=== PATIENT | female | born 1975 | race Caucasian/White ===

== ENCOUNTER 2016-07-11 10:59 | Emergency (ER) | payer MEDICARE, MEDICAID ==
[2016-07-11 11:39] VITALS: BP 143/85
--- NOTE | 2016-07-11 13:04 | RAD ---
Indication: Fifth toe injury. 3 views of the fifth toe demonstrates deformity of the fifth metatarsal. No fracture is noted. IMPRESSION: Deformity of the fifth metatarsal without evidence of fracture.
--- NOTE | 2016-07-11 13:26 | UC ---
Lower Extremity/Ankle HPI - HPI Summary HPI Summary: YESTERDAY STUBBED LEFT PINKY TOE ON DOOR HINGE. PAIN IN TOE CONTINUES AND RADIATES TO (LATERAL) FOOT. NO ANKLE PAIN. NO HISTORY OF PREVIOUS FOOT INJURY - History of Current Complaint Chief Complaint: UCLowerExtremity Stated Complaint: LEFT PINKY TOE INJURY Time Seen by Provider: 07/11/16 12:20 Hx Obtained From: Patient, Family/Community Living Instructor Hx Last Menstrual Period: 04/16/15 Onset/Duration: Sudden Onset, Lasting Hours, Still Present Severity Initially: Moderate Severity Currently: Mild Aggravating Factor(s): Standing, Ambulation Alleviating Factor(s): Rest Able to Bear Weight: Yes - Risk Factors Gout Risk Factors: Diabetes, Obesity DVT Risk Factors: Smoking - Allergies/Home Medications Allergies/Adverse Reactions: Allergies Allergy/AdvReac Type Severity Reaction Status Date / Time No Known Allergies Allergy Verified 07/11/16 11:31 PMH/Surg Hx/FS Hx/Imm Hx Previously Healthy: Yes Endocrine History Of: Reports: Diabetes, Thyroid Disease - Hypothyroidism. History of thyroid cancer., Hypothyroidism Denies: Hyperthyroidism, Dyslipidemia Cardiovascular History Of: Reports: Hypertension Denies: Cardiac Disorders, Pacemaker/ICD, Myocardial Infarction, Congestive Heart Failure, Atrial Fibrillation, Deep Vein Thrombosis, Bleeding Disorders Respiratory History Of: Denies: COPD, Asthma, Bronchitis, Pneumonia, Pulmonary Embolism GI/ History Of: Reports: Gastroesophageal Reflux Denies: Ulcer, Gastrointestinal Bleed, Gall Bladder Disease, Kidney Stones, Diverticulitis, Renal Disease, Urosepsis Neurological History Of: Denies: TIA, CVA, Dementia, Seizures, Migraine Psychological History Of: Reports: Depression Denies: Anxiety, Bipolar Disorder, Schizophrenia, Post Traumatic Stress Disorder Cancer History Of: Denies: Lung Cancer, Colorectal Cancer, Breast Cancer, Prostate Cancer, Cervical Cancer Other History Of: Negative For: HIV, Hepatitis B, Hepatitis C - Surgical History Surgical History: Yes Surgery Procedure, Year, and Place: [place] thyroid removed. 2001 - Family History Known Family History: Positive: None, Diabetes - Social History Occupation: Employed Full-time Lives: With Family Alcohol Use: None Substance Use Type: None Smoking Status (MU): Heavy Every Day Tobacco Smoker Type: Cigarettes Amount Used/How Often: 1 PPD Length of Time of Smoking/Using Tobacco: 30 Years Have You Smoked in the Last Year: Yes Cessation Counseling: Patient Advised to Stop - Immunization History Most Recent Influenza Vaccination: 2016 Review of Systems Constitutional: Negative Skin: Negative Eyes: Negative ENT: Negative Respiratory: Negative Cardiovascular: Negative Gastrointestinal: Negative Genitourinary: Negative Motor: Negative Neurovascular: Negative Musculoskeletal: Arthralgia - LEFT FIFTH TOE, Myalgia Neurological: Negative Psychological: Negative All Other Systems Reviewed And Are Negative: Yes Physical Exam Triage Information Reviewed: Yes Appearance: Well-Appearing, No Pain Distress, Well-Nourished, Obese Vital Signs: Initial Vital Signs Temp 97.9 F 07/11/16 11:34 Pulse 82 07/11/16 11:34 Resp 22 07/11/16 11:34 BP 143/85 07/11/16 11:34 Pulse Ox 99 07/11/16 11:34 Vital Signs Reviewed: Yes Eye Exam: Normal Eyes: Positive: Conjunctiva Clear ENT Exam: Normal Dental Exam: Normal Neck exam: Normal Respiratory Exam: Normal Respiratory: Positive: Chest non-tender, Lungs clear, Normal breath sounds, No respiratory distress, No accessory muscle use Cardiovascular Exam: Normal Cardiovascular: Positive: RRR, No Murmur, Pulses Normal, Brisk Capillary Refill Abdominal Exam: Normal Abdomen Description: Positive: Nontender, No Organomegaly Musculoskeletal: Positive: Strength Intact, ROM Intact, No Edema, Other: - CONTUSION LEFT FIFTH TOE AND CORRESPONDING METATARSAL Neurological Exam: Normal Psychological Exam: Normal Skin Exam: Normal Diagnostics - Laboratory Diagnostic Studies Completed/Ordered: LEFT 5TH TOE XRAY: INCIDENTAL DEFORMITY OF LEFT FIFTH METATARSAL WITHOUT EVIDENCE OF FRACTURE Lower Extremity Course/Dx - Differential Dx/Diagnosis Differential Diagnosis/HQI/PQRI: Fracture (Closed), Sprain, Strain Provider Diagnoses: LEFT FIFTH TOE CONTUSION/SPRAIN. INCIDENTAL DEFORMITY OF LEFT FIFTH METATARSAL WITHOUT EVIDENCE OF FRACTURE Discharge - Discharge Plan Condition: Stable Disposition: HOME Patient Education Materials: Foot Contusion (ED), Foot Sprain (ED) Referrals: Erna Garcia MD [Primary Care Provider] -
== END 2016-07-11 13:28 | disposition home or self-care (01) ==
LOC: UCCORT 10:59
DX: S90.122A Contusion of left lesser toe(s) without damage to nail, initial encounter (principal); S93.505A Unspecified sprain of left lesser toe(s), initial encounter; W22.8XXA Striking against or struck by other objects, initial encounter; Y93.9 Activity, unspecified; Y92.9 Unspecified place or not applicable; M20.62 Acquired deformities of toe(s), unspecified, left foot; F17.210 Nicotine dependence, cigarettes, uncomplicated
CPT/HCPCS: 99212; G0463

== ENCOUNTER 2016-07-27 16:21 | Emergency (ER) | payer MEDICARE, MEDICAID ==
[2016-07-27 17:05] VITALS: BP 147/90
--- NOTE | 2016-07-27 17:36 | UC ---
Respiratory Complaint HPI - HPI Summary HPI Summary: 2 weeks of cold symptoms. Still coughing and congested. No fever. No ST. No vomiting. HEr MD put her on two sequential antibiotics (perhaps Levaquin and Bactrim?) but they haven't helped. - History of Current Complaint Chief Complaint: UCGeneralIllness Stated Complaint: COUGH,RUNNY NOSE Time Seen by Provider: 07/27/16 17:18 Hx Obtained From: Patient Hx Last Menstrual Period: has esure Onset/Duration: Gradual Onset, Lasting Weeks - 2 Timing: Constant Severity Initially: Mild Severity Currently: Mild Character: Cough: Nonproductive Aggravating Factors: Exertion, Deep Breaths, Recumbent Position Alleviating Factors: Bronchodilator Associated Signs And Symptoms: Positive: Chills, URI, Nasal Congestion, Hoarseness - Risk Factors Pulmonary Embolism Risk Factors: Negative Cardiac Risk Factors: Negative Pseudomonas Risk Factors: Negative Tuberculosis Risk Factors: Negative - Allergies/Home Medications Allergies/Adverse Reactions: Allergies Allergy/AdvReac Type Severity Reaction Status Date / Time No Known Allergies Allergy Verified 07/27/16 17:05 Home Medications: Home Medications Albuterol HFA INHALER* [Ventolin HFA Inhaler*] 2 puff INH Q4H PRN 07/27/16 [ History Confirmed 07/27/16] Budesonide/Formote 160/4.5(NF) [Symbicort 160/4.5 (NF)] 2 puff INH BID 07/27/16 [History Confirmed 07/27/16] Canagliflozin-Metformin HCl [Invokamet 150-1000 mg] 1 tab PO BID 07/27/16 [ History Confirmed 07/27/16] Dulaglutide (NF) [Trulicity (NF)] 1.5 mg SUBCUT WEEKLY 07/27/16 [History Confirmed 07/27/16] Levofloxacin TAB* [Levaquin 750 MG TAB*] 1 tab DAILY 07/27/16 [History Confirmed 07/27/16] Lisinopril [Lisinopril 40 MG-] 40 mg PO DAILY 07/27/16 [History Confirmed ] Potassium Chloride Microencaps [Klor-Con M20] 20 meq PO DAILY 07/27/16 [History Confirmed 07/27/16] Simvastatin TAB(NF) [Zocor(NF)] 20 mg PO 1700 07/27/16 [History Confirmed ] Sulfamethox/Trimethoprim DS* [Bactrim DS 800/160 TAB*] 1 tab PO BID 07/27/16 [ History Confirmed 07/27/16] Triamcinolone NASAL SPRAY* [Nasacort AQ Nasal [place]*] 1 puff NASAL DAILY [History Confirmed 07/27/16] PMH/Surg Hx/FS Hx/Imm Hx Endocrine History Of: Reports: Diabetes, Thyroid Disease - Hypothyroidism. History of thyroid cancer., Hypothyroidism Denies: Hyperthyroidism, Dyslipidemia Cardiovascular History Of: Reports: Hypertension Denies: Cardiac Disorders, Pacemaker/ICD, Myocardial Infarction, Congestive Heart Failure, Atrial Fibrillation, Deep Vein Thrombosis, Bleeding Disorders Respiratory History Of: Denies: COPD, Asthma, Bronchitis, Pneumonia, Pulmonary Embolism GI/ History Of: Reports: Gastroesophageal Reflux Denies: Ulcer, Gastrointestinal Bleed, Gall Bladder Disease, Kidney Stones, Diverticulitis, Renal Disease, Urosepsis Neurological History Of: Denies: TIA, CVA, Dementia, Seizures, Migraine Psychological History Of: Reports: Depression Denies: Anxiety, Bipolar Disorder, Schizophrenia, Post Traumatic Stress Disorder Cancer History Of: Denies: Lung Cancer, Colorectal Cancer, Breast Cancer, Prostate Cancer, Cervical Cancer Other History Of: Negative For: HIV, Hepatitis B, Hepatitis C - Surgical History Surgical History: Yes Surgery Procedure, Year, and Place: [place] thyroid removed. 2001 - Family History Known Family History: Positive: None, Diabetes - Social History Occupation: Employed Full-time Alcohol Use: None Substance Use Type: None Smoking Status (MU): Heavy Every Day Tobacco Smoker Type: Cigarettes Amount Used/How Often: 1 PPD Length of Time of Smoking/Using Tobacco: 30 Years Have You Smoked in the Last Year: Yes - Immunization History Most Recent Influenza Vaccination: 2015 Review of Systems Constitutional: Negative Skin: Negative Eyes: Negative ENT: Nasal Discharge Respiratory: Cough Cardiovascular: Negative Gastrointestinal: Negative Genitourinary: Negative Motor: Negative Neurovascular: Negative Musculoskeletal: Negative Neurological: Negative Psychological: Negative All Other Systems Reviewed And Are Negative: Yes Physical Exam Triage Information Reviewed: Yes Appearance: Well-Appearing, No Pain Distress, Well-Nourished Vital Signs: Initial Vital Signs Temp 98.3 F 07/27/16 16:58 Pulse 88 07/27/16 16:58 Resp 18 07/27/16 16:58 BP 147/90 07/27/16 16:58 Pulse Ox 100 07/27/16 16:58 Vital Signs Reviewed: Yes Eye Exam: Normal ENT: Positive: Pharynx normal, Nasal congestion, Nasal drainage, TM dull - right side with clear fluid level. Negative: Tonsillar swelling, Trismus, Muffled/hoarse voice Neck exam: Normal Neck: Positive: Supple Respiratory Exam: Normal Respiratory: Positive: Lungs clear, Normal breath sounds, No respiratory distress, No accessory muscle use Cardiovascular Exam: Normal Musculoskeletal Exam: Normal Neurological Exam: Normal Psychological Exam: Normal Skin Exam: Normal Diagnostic Evaluation - Laboratory O2 Sat by Pulse Oximetry: 100 Respiratory Course/Dx - Differential Dx/Diagnosis Differential Diagnosis/HQI/PQRI: Bronchitis, Lower Resp Infection, Sinusitis Provider Diagnoses: URI Discharge - Discharge Plan Condition: Stable Disposition: HOME Prescriptions: Benzonatate CAP* [Tessalon CAP*] 100 mg PO TID PRN #30 cap PRN Reason: Cough Guaifenesin-Codeine [Cheratussin AC] 2 teasp PO BEDTIME PRN #100 ml MDD 10ml PRN Reason: Cough Pseudoephedrine HCl [Sudafed 12 Hour] 120 mg PO BID PRN #20 tab PRN Reason: Congestion Patient Education Materials: Upper Respiratory Infection (ED) Forms: *Work Release Referrals: Erna Garcia MD [Primary Care Provider] -
== END 2016-07-27 17:35 | disposition home or self-care (01) ==
LOC: UCCORT 16:21
DX: J06.9 Acute upper respiratory infection, unspecified (principal); I10 Essential (primary) hypertension; F17.210 Nicotine dependence, cigarettes, uncomplicated
CPT/HCPCS: 99212; G0463

== ENCOUNTER 2017-01-30 14:07 | Emergency (ER) | payer MEDICARE, MEDICAID ==
[2017-01-30 14:22] VITALS: BP 111/74
--- NOTE | 2017-01-30 14:43 | UC ---
UC General HPI - History of Current Complaint Chief Complaint: UCGeneralIllness Stated Complaint: HIGH SUGAR LEVEL Time Seen by Provider: 01/30/17 14:24 Hx Obtained From: Patient Hx Last Menstrual Period: has esure Onset/Duration: Sudden Onset - increasing sugars without any reason., Lasting Days - 2 days, Still Present - sugars have been up and down. Timing: Intermittent Episodes Lasting: - at least 4 hours at a time. Onset Severity: Moderate Current Severity: Moderate Associated Signs & Symptoms: Positive: Dizziness - just with bending over or getting up fast., Diaphoresis - ongoing with no real change., Melena - had a heart test. Has resolved. Took peptobismal.. Negative: Abdominal Pain, Back Pain, Cough, Diarrhea, Fever, Headache, Palpitations, Recent Medication Changes , Syncope, SOB, Vomiting, Wheezing, Weakness - Allergy/Home Medications Allergies/Adverse Reactions: Allergies Allergy/AdvReac Type Severity Reaction Status Date / Time No Known Allergies Allergy Verified 07/27/16 17:05 PMH/Surg Hx/FS Hx/Imm Hx Endocrine History: Diabetes, Hypothyroidism, Dyslipidemia Other History Of: Negative For: HIV, Hepatitis B, Hepatitis C - Surgical History Surgical History: Yes Surgery Procedure, Year, and Place: [place] thyroid removed. 2001 - Family History Known Family History: Positive: Cardiac Disease, Hypertension, Diabetes - Social History Occupation: Employed Full-time Lives: With Family - boyfriend Alcohol Use: None Substance Use Type: None Smoking Status (MU): Heavy Every Day Tobacco Smoker Type: Cigarettes Amount Used/How Often: 1 PPD Length of Time of Smoking/Using Tobacco: 30 Years Have You Smoked in the Last Year: Yes Cessation Counseling: Patient Advised to Stop - Immunization History Most Recent Influenza Vaccination: 2016 Review of Systems Constitutional: Fatigue All Other Systems Reviewed And Are Negative: Yes Physical Exam Triage Information Reviewed: Yes Appearance: Well-Appearing, No Pain Distress, Obese Vital Signs: Initial Vital Signs Temp 97.3 F 01/30/17 14:12 Pulse 100 01/30/17 14:12 Resp 16 01/30/17 14:12 BP 111/74 01/30/17 14:12 Pulse Ox 100 01/30/17 14:12 Vital Signs Reviewed: Yes Eyes: Positive: Conjunctiva Clear ENT: Positive: Pharynx normal, TMs normal Neck exam: Normal Respiratory: Positive: Lungs clear Cardiovascular Exam: Normal Abdomen Description: Positive: Nontender, No Organomegaly, Other: - small ventral hernia Musculoskeletal Exam: Normal Neurological Exam: Normal Psychological Exam: Normal Skin Exam: Normal Course/Dx - Differential Dx - Multi-Symptom Differential Diagnoses: Metabolic Abnormality, Sepsis Provider Diagnoses: Diabetes,. Hyperglycemia - Physician Notifications Discussed Patient Care With: Donell Rosales - accepted for transfer to [facility] Time Discussed With Above Provider: 14:55 Instructed by Provider To: Transfer - [facility] Discharge - Discharge Plan Condition: Stable Disposition: HOME Patient Education Materials: Diabetic Hyperglycemia (ED) Additional Instructions: Smoking Cessation Tricks. 1. Cut down by 1 cigarette per day every 2-3 days. Write the number of smokes for that day on the calendar. 2. Identify triggers to smoking: after meals, on the phone, in the car, with coffee, on breaks at work, etc. 3. Formulate a plan with a behavior to replace the smoking. Fireballs in the car , doodle pad on the phone, flavored creamer for the coffee, go for a walk after a meal or on break at work. 4. For stress smokes do deep breathing relaxation. Breath deep in through the nose hold the breath in for a few seconds then breath out slowly through the mouth. Consider Victoza or other GLP1 medications for your diabetes.
== END 2017-01-30 15:21 | disposition home or self-care (01) ==
LOC: UCCORT 14:07
DX: E11.65 Type 2 diabetes mellitus with hyperglycemia (principal); R42 Dizziness and giddiness; R61 Generalized hyperhidrosis; K92.1 Melena; E03.9 Hypothyroidism, unspecified; E78.5 Hyperlipidemia, unspecified; E66.9 Obesity, unspecified; F17.210 Nicotine dependence, cigarettes, uncomplicated
CPT/HCPCS: 99211; G0463

== ENCOUNTER 2017-03-31 09:03 | Emergency (ER) | payer MEDICARE, MEDICAID ==
[2017-03-31 09:10] VITALS: BP 133/79
--- NOTE | 2017-03-31 09:29 | UC ---
Respiratory Complaint HPI - HPI Summary HPI Summary: 42 year old female with history of smoking presents with cough and congestion for 4 days. Uncontrolled DM-2 and smokes 1 ppd . Has had some wheezing. Denies SOB/CP/BARRETT - History of Current Complaint Chief Complaint: UCRespiratory Stated Complaint: COUGH Time Seen by Provider: 03/31/17 09:16 Hx Obtained From: Patient Hx Last Menstrual Period: no Onset/Duration: Gradual Onset Timing: Constant Severity Initially: Moderate Severity Currently: Moderate Character: Cough: Productive - Allergies/Home Medications Allergies/Adverse Reactions: Allergies Allergy/AdvReac Type Severity Reaction Status Date / Time No Known Allergies Allergy Verified 03/31/17 09:10 PMH/Surg Hx/FS Hx/Imm Hx Previously Healthy: Yes Endocrine History: Diabetes Cardiovascular History: Hypertension Other History Of: Negative For: HIV, Hepatitis B, Hepatitis C - Surgical History Surgical History: Yes Surgery Procedure, Year, and Place: [place]. thyroid removed. 2001 - Family History Known Family History: Positive: None, Cardiac Disease, Hypertension, Diabetes - Social History Occupation: Employed Full-time Lives: With Family Alcohol Use: None Substance Use Type: None Smoking Status (MU): Heavy Every Day Tobacco Smoker Type: Cigarettes Amount Used/How Often: 1 PPD Length of Time of Smoking/Using Tobacco: 30 Years Have You Smoked in the Last Year: Yes Cessation Counseling: Patient Advised to Stop - Immunization History Most Recent Influenza Vaccination: no Review of Systems ENT: Nasal Discharge Respiratory: Cough All Other Systems Reviewed And Are Negative: Yes Physical Exam Triage Information Reviewed: Yes Appearance: Well-Appearing, No Pain Distress, Well-Nourished Vital Signs: Initial Vital Signs Temp 98.8 F 03/31/17 09:06 Pulse 85 03/31/17 09:06 Resp 18 03/31/17 09:06 BP 133/79 03/31/17 09:06 Pulse Ox 97 03/31/17 09:06 Vital Signs Reviewed: Yes Eye Exam: Normal ENT Exam: Normal Dental Exam: Normal Neck exam: Normal Neck: Positive: 1 Respiratory Exam: Normal Cardiovascular Exam: Normal Musculoskeletal Exam: Normal Neurological Exam: Normal Psychological Exam: Normal Skin Exam: Normal UC Diagnostic Evaluation - Laboratory O2 Sat by Pulse Oximetry: 97 Respiratory Course/Dx - Course Course Of Treatment: Advised to quit smoking. Advised better control of her DM2 and go to PCP in 1 day for follow up . She is agreeable. She requested work note. - Differential Dx/Diagnosis Differential Diagnosis/HQI/PQRI: Bronchitis, Exacerbation Of COPD, Lower Resp Infection Provider Diagnoses: Bronchitis with tobacco use Discharge - Discharge Plan Condition: Good Disposition: HOME Prescriptions: Doxycycline Hyclate [Doxycycline Hyclate Dr] 100 mg PO BID #20 tab Patient Education Materials: Acute Bronchitis (ED)
== END 2017-03-31 10:07 | disposition home or self-care (01) ==
LOC: UCCORT 09:03
DX: J40 Bronchitis, not specified as acute or chronic (principal); E11.9 Type 2 diabetes mellitus without complications; F17.210 Nicotine dependence, cigarettes, uncomplicated; Z71.6 Tobacco abuse counseling
CPT/HCPCS: 99212; G0463

== ENCOUNTER 2017-04-11 10:51 | Emergency (ER) | payer MEDICARE, MEDICAID ==
--- NOTE | 2017-04-11 13:38 | UC ---
Back Pain HPI - HPI Summary HPI Summary: 42 y/o female presents to the urgent care c/o lower back since this morning. Pt reports she woke up this morning with the pain specially on the left side. Pain is 9/10 with walking, better with rest. No radiation. She has not taking anything to alleviate the pain. Pt denies any fecal or urinary incontinence, saddle anesthesia, numbness or tingling of lower legs, vaginal discharge, chest pain, or abdominal pain. She had a BM yesterday and it was soft. LMP: 2016 she is not menstruating since then. Pt doesn't recall any injury or lifting anything heavy recently or doing any strenuous exercise. - History of Current Complaint Chief Complaint: UCBackPain Stated Complaint: BACK PAIN Time Seen by Provider: 04/11/17 13:35 Hx Obtained From: Patient Hx Last Menstrual Period: no ?: No Onset/Duration: Gradual Onset, Lasting Days - 1 day, Still Present Timing: Constant Severity Initially: Severe Severity Currently: Severe Pain Intensity: 9 Pain Scale Used: 0-10 Numeric Back Pain: Is Discrete @ - lower back LF side >RT side Character: Sharp, Spasmodic Aggravating Factor(s): Lifting, Bending, Walking Alleviating Factor(s): Rest Associated Signs And Symptoms: Positive: Pain with Weight Bearing. Negative: Swelling, Redness, Fever, Weakness, Numbness, Tingling, Flank Pain, Bladder Incontinence, Bowel Incontinence - Risk Factors AAA Risk Factors: Negative TAD Risk Factors: Negative Cauda Equina Risk Factors: Negative Epidural Abscess Risk Factors: Negative - Allergies/Home Medications Allergies/Adverse Reactions: Allergies Allergy/AdvReac Type Severity Reaction Status Date / Time No Known Allergies Allergy Verified 04/11/17 11:29 PMH/Surg Hx/FS Hx/Imm Hx Previously Healthy: Yes Endocrine History: Diabetes, Hypothyroidism, Dyslipidemia Cardiovascular History: Hypertension Psychological History: Depression Other History Of: Negative For: HIV, Hepatitis B, Hepatitis C - Surgical History Surgical History: Yes Surgery Procedure, Year, and Place: [facility]. thyroid removed. 2001 - Family History Known Family History: Positive: Cardiac Disease, Hypertension, Diabetes - Social History Occupation: Employed Full-time Lives: With Family Alcohol Use: None Substance Use Type: None Smoking Status (MU): Heavy Every Day Tobacco Smoker Type: Cigarettes Amount Used/How Often: 1 PPD Length of Time of Smoking/Using Tobacco: 30 Years Have You Smoked in the Last Year: Yes - Immunization History Most Recent Influenza Vaccination: no Review of Systems Constitutional: Negative Skin: Negative Eyes: Negative ENT: Negative Respiratory: Negative Cardiovascular: Negative Gastrointestinal: Negative Genitourinary: Negative Motor: Negative Neurovascular: Negative Musculoskeletal: Other: - Lower back pain Neurological: Negative Psychological: Negative Is Patient Immunocompromised?: No All Other Systems Reviewed And Are Negative: Yes Physical Exam Triage Information Reviewed: Yes Vital Signs: Initial Vital Signs Temp 97.9 F 04/11/17 11:26 Pulse 90 04/11/17 11:26 Resp 16 04/11/17 11:26 BP 135/82 04/11/17 11:26 Pulse Ox 98 04/11/17 11:26 - Additional Comments Vital signs: reviewed General: Patient is a well developed , well nourished obese female without any distress sitting comfortably on the examining table Skin: [place], warm, dry HEAD AND FACE: No signs of trauma. EYES: PERRLA, EOMI x 2. EARS: Hearing grossly intact. MOUTH: Oropharynx within normal limits. NECK: Supple, trachea is midline, no adenopathy, no JVD. CHEST: Symmetric, no tenderness at palpation LUNGS: CTA bilaterally, no rales, rhonchi or wheezing CVS: RRR, no murmur, rub, or gallop ABDOMEN: soft and Nontender without masses, no guarding or rebound. Bowel sounds are active. No Hepato-splenomegaly. No signs of inguinal hernias. BACK: Patient walked into the urgent care room with symmetric ambulation, No signs of limping, antalgic, able to bear weight. No signs of trauma,positive tenderness to palpation at the level of L4-L5 with left side spasm in the Paraspinal muscles at the same level of spine. No masses palpated. , No CVAT, no flank ecchymosis . No sacroiliac notch tenderness, No saddle anesthesia ROM: flexion/ extension/ lateral bending and rotation, note if limited or causes pain Straight Leg Raise: negative. Patellar reflexes: brisk, symmetric Muscle strength lower extremities. Dorsiflexion/ plantar flexion of ankles. Heel/ toe walk Lower extremities: Femoral, popliteal, posterior tibial, and dorsalis pedis pulses with in normal, Rectal: Patient refused the exam. Back Pain Course/Dx - Course Course Of Treatment: 42 y/o female presents to the urgent care c/o lower back since this morning. Pt reports she woke up this morning with the pain specially on the left side. Pain is 9/10 with walking, better with rest. No radiation. She has not taking anything to alleviate the pain. Pt denies any fecal or urinary incontinence, saddle anesthesia, numbness or tingling of lower legs, vaginal discharge, chest pain, or abdominal pain. She had a BM yesterday and it was soft. LMP: 2015 she is not menstruating since then. Pt doesn't recall any injury or lifting anything heavy recently or doing any strenuous exercise. Hx obtained.Pt with tenderness at the level of L4-L5 on examination and left side paraspinal muscle tenderness at the same level. Lumboscaral X-ray ordered: Impression: Mild to moderate degenerative disc disease at L1-L2, L2-L3 , L3-L4 and L4-L5 UA ordered: Pt unable to give us urine and declined UA. Toradol IM inj ordered and given by nurse. Pt tolerated well IM inj and pain decrease to 5/10. Pt Rx Flexeril PO, Medrol dose ward, Naproxen Po to alleviate symptoms. Pt given PT referral and Orthopedic referral for further evalution and treatment. Pt advised to stop Flexeril if she developed any of the symptoms explained in D/C instructions. Pt understood and agreed with plan of care. Left the clinic hemodynamically stable, A&OX3 - Differential Dx/Diagnosis Differential Diagnosis/HQI/PQRI: Arthritis, Fracture, Herniated Disc, Renal Colic, Strain, Sprain, Other - UTI, kidney stone Provider Diagnoses: 1- acute lower back pain due to degenerative disc disease. 2-Back spasm. 3- Scoliosis Discharge - Discharge Plan Condition: Stable Disposition: HOME Prescriptions: Cyclobenzaprine TAB* [Flexeril 10 MG TAB*] 10 mg PO TID PRN #15 tab PRN Reason: Spasms - Back Methylprednisolone [Medrol Dosepak 4 MG*] 4 mg PO .SEE WARD INSTRUCTION #1 ward Naproxen TAB* [Naprosyn 250 mg TAB*] 500 mg PO Q8H PRN #30 tab PRN Reason: Pain - Back Patient Education Materials: Acute Low Back Pain (ED), Degenerative Disc Disease (ED) Forms: *Work Release Referrals: Erna Garcia MD [Primary Care Provider] - 3 Days Jose Campbell MD [Medical Doctor] - 1 Week Additional Instructions: 1- Please take Naproxen PO as directed after meals for pain. 2- Take Flexeril PO as directed for muscle spasm. Please do not drive while taking the medication. If you develop confusion, diaphoresis, agitation, tachycardia, or tremors, please stop the Flexeril and go immediately to the ER for further treatment. 3- Wear a back support. Avoid strenuous exercise of heavy lifting. 4- Please follow up with Orthopedic Dr Campbell or your PCP in 1 week if not improvement of symptoms, for further management. 5- Please f/u PT referral for further evaluation and treatment.
[2017-04-11] MEDS ORDERED: Ketorolac INJ* 60 MG/2 ML VIAL IM ONE (14:10)
[2017-04-11 14:22] VITALS: BP 130/72
--- NOTE | 2017-04-11 14:26 | RAD ---
INDICATION: Low back pain. COMPARISON: There are no prior studies available for comparison. TECHNIQUE: 5 views of the lumbar spine were obtained including lateral, oblique, AP and a coned-down lateral view of the lumbar sacral junction. FINDINGS: There is a mild lumbar scoliosis convex toward the left side. The vertebra are otherwise in normal alignment. No fracture is seen. There is moderate disc space narrowing and endplate hypertrophic changes at the L1-L2 level and mild disc space narrowing and endplate hypertrophic changes at the L2-L3, L3-L4 and L4-L5 levels. IMPRESSION: MILD TO MODERATE DEGENERATIVE DISC DISEASE.
== END 2017-04-11 15:10 | disposition home or self-care (01) ==
LOC: UCCORT 10:51
DX: M41.9 Scoliosis, unspecified (principal); E11.9 Type 2 diabetes mellitus without complications; E03.9 Hypothyroidism, unspecified; E78.5 Hyperlipidemia, unspecified; I10 Essential (primary) hypertension; F17.210 Nicotine dependence, cigarettes, uncomplicated; M54.5 Low back pain; M62.830 Muscle spasm of back
CPT/HCPCS: 72110; 96372; 99212; G0463; J1885

== ENCOUNTER 2017-08-11 21:53 | Emergency (ER) | payer MEDICARE, MEDICAID ==
[2017-08-11 22:09] VITALS: BP 151/101
--- NOTE | 2017-08-11 22:26 | UC ---
Lower Extremity/Ankle HPI - HPI Summary HPI Summary: 42 YO FEMALE SLIPPED ON MUD AND INJURED HER LEFT FOOT ABLE TO BEAR WT WITH LIMP - History of Current Complaint Chief Complaint: UCLowerExtremity Stated Complaint: LEFT ANKLE INJURY Time Seen by Provider: 08/11/17 21:59 Hx Obtained From: Patient Hx Last Menstrual Period: ESSURE Onset/Duration: Sudden Onset, Lasting Hours Severity Initially: Severe Severity Currently: Severe Pain Intensity: 9 Pain Scale Used: 0-10 Numeric Aggravating Factor(s): Standing, Ambulation Alleviating Factor(s): Rest Able to Bear Weight: Yes - Allergies/Home Medications Allergies/Adverse Reactions: Allergies Allergy/AdvReac Type Severity Reaction Status Date / Time No Known Allergies Allergy Verified 08/11/17 22:03 PMH/Surg Hx/FS Hx/Imm Hx Previously Healthy: Yes Endocrine History: Diabetes, Hypothyroidism, Dyslipidemia Cardiovascular History: Hypertension Other History Of: Negative For: HIV, Hepatitis B, Hepatitis C - Surgical History Surgical History: Yes Surgery Procedure, Year, and Place: [facility]. thyroid removed. 2001. LEFT HEEL SPUR REMOVED - Family History Known Family History: Positive: Cardiac Disease, Hypertension, Diabetes - Social History Alcohol Use: None Substance Use Type: None Smoking Status (MU): Heavy Every Day Tobacco Smoker Type: Cigarettes Amount Used/How Often: 1 PPD Length of Time of Smoking/Using Tobacco: 32 Years Have You Smoked in the Last Year: Yes - Immunization History Most Recent Influenza Vaccination: no Review of Systems Constitutional: Negative Skin: Negative Eyes: Negative ENT: Negative Respiratory: Negative Cardiovascular: Negative Gastrointestinal: Negative Genitourinary: Negative Motor: Negative Neurovascular: Negative Musculoskeletal: Arthralgia Neurological: Negative Psychological: Negative All Other Systems Reviewed And Are Negative: Yes Physical Exam Triage Information Reviewed: Yes Appearance: Well-Appearing, No Pain Distress, Well-Nourished, Other: - BMI 44 Vital Signs: Initial Vital Signs Temp 97.6 F 08/11/17 22:04 Pulse 85 08/11/17 22:04 Resp 18 08/11/17 22:04 BP 151/101 08/11/17 22:04 Pulse Ox 99 08/11/17 22:04 Vital Signs Reviewed: Yes Eyes: Positive: Conjunctiva Clear ENT: Positive: Hearing grossly normal. Negative: Nasal congestion, Nasal drainage, Trismus, Muffled voice, Hoarse voice Neck: Positive: Supple, Nontender Respiratory: Positive: Lungs clear, Normal breath sounds, No respiratory distress Cardiovascular: Positive: RRR, No Murmur Musculoskeletal: Positive: Other: - SEE IMAGE Neurological Exam: Normal Neurological: Positive: Alert Psychological Exam: Normal Diagnostics - Radiology No standard instances Xray Interpretation: Positive (See Comments) - FX 4TH TOE AND AVULSION FX OF TARSAL NAVICULAR Lower Extremity Course/Dx - Differential Dx/Diagnosis Provider Diagnoses: AVULSION FRACTURES TARSAL NAVICULAR. LEFT 4TH TOE FRACTURE Discharge - Discharge Plan Condition: Stable Disposition: HOME Patient Education Materials: Toe Fracture (ED), Foot Fracture in Adults (ED), R.I.C.E. Treatment (ED) Forms: *Work Release Referrals: Willie Valencia MD [Medical Doctor] - As Soon As Possible Additional Instructions: ADVIL 3 PILLS 4X DAY WITH FOOD FOR PAIN REST ELEVATE ICE POST OP SHOE TESFAYE WRAP Images Feet (Multiple View): 1 - TENDER/. LM AND MM NOT TENDER OR SWOLLEN
[2017-08-11] MEDS: Ibuprofen TAB* 600 MG PO ONE (22:37)
--- NOTE | 2017-08-12 07:27 | RAD ---
HISTORY: Left foot injury COMPARISONS: July 11, 2016, February 01, 2013 VIEWS: 3, Frontal, lateral, and oblique views of the left foot FINDINGS: BONE DENSITY: There is diffuse osteopenia. BONES: There is fragmentation of the dorsal aspect of the navicular bone suggestive of avulsion fracture. There is a fracture of the proximal phalanx of the fourth digit not significant displacement or angulation.. There are calcaneal enthesophytes. JOINTS: There is osteoarthritis of the midfoot and first MTP joint. ALIGNMENT: There is valgus inflation of the second, third, and fourth metatarsals. SOFT TISSUES: Unremarkable. OTHER FINDINGS: None. IMPRESSION: FRACTURES OF THE FOURTH DIGIT AND MIDFOOT DESCRIBED ABOVE.
== END 2017-08-11 22:40 | disposition home or self-care (01) ==
LOC: UCCORT 21:53
DX: S92.252A Displaced fracture of navicular [scaphoid] of left foot, initial encounter for closed fracture (principal); S92.512A Displaced fracture of proximal phalanx of left lesser toe(s), initial encounter for closed fracture; W01.0XXA Fall on same level from slipping, tripping and stumbling without subsequent striking against object, initial encounter; Y93.9 Activity, unspecified; Y92.9 Unspecified place or not applicable; E11.9 Type 2 diabetes mellitus without complications; Z87.891 Personal history of nicotine dependence
CPT/HCPCS: 99213; A9270-GY; G0463

== ENCOUNTER 2018-01-17 08:06 | Emergency (ER) | payer MEDICARE, MEDICAID ==
[2018-01-17 08:23] VITALS: BP 145/89
--- NOTE | 2018-01-17 08:46 | ED ---
Throat Pain/Nasal Congestion - HPI Summary HPI Summary: 42 yr old female with the complaint of right ear pain. The patient complains of pain to the right ear for about a week. No drainage, no change in hearing. No fever or chills. No URI symptoms or sore throat. She had tubes in her ears as a little child. - History of Current Complaint Chief Complaint: UCEar Time Seen by Provider: 01/17/18 08:35 - Allergies/Home Medications Allergies/Adverse Reactions: Allergies Allergy/AdvReac Type Severity Reaction Status Date / Time No Known Allergies Allergy Verified 01/17/18 08:21 PMH/Surg Hx/FS Hx/Imm Hx Endocrine/Hematology History: Reports: Hx Diabetes, Hx Thyroid Disease - Hypothyroidism. History of thyroid cancer. Cardiovascular History: Reports: Hx Hypertension Denies: Hx Congestive Heart Failure, Hx Deep Vein Thrombosis, Hx Myocardial Infarction, Hx Pacemaker/ICD Respiratory History: Denies: Hx Asthma, Hx Chronic Obstructive Pulmonary Disease (COPD), Hx Lung Cancer, Hx Pneumonia, Hx Pulmonary Embolism GI History: Denies: Hx Gall Bladder Disease, Hx Gastrointestinal Bleed, Hx Ulcer, Hx Urosepsis History: Denies: Hx Kidney Stones, Hx Renal Disease Musculoskeletal History: Denies: Hx Rheumatoid Arthritis, Hx Osteoporosis Sensory History: Denies: Hx Hearing Aid Neurological History: Denies: Hx Dementia, Hx Migraine, Hx Seizures, Hx Transient Ischemic Attacks (TIA) Psychiatric History: Reports: Hx Depression Denies: Hx Anxiety, Hx Panic Disorder, Hx Schizophrenia, Hx Bipolar Disorder - Cancer History Cancer Type, Location and Year: thyroid - Surgical History Surgery Procedure, Year, and Place: [facility]. thyroid removed. 2001. LEFT HEEL SPUR REMOVED Infectious Disease History: No Infectious Disease History: Denies: Traveled Outside the [place] in Last 30 Days - Family History Known Family History: Positive: Cardiac Disease, Hypertension, Diabetes - Social History Occupation: Unemployed Lives: With Family Alcohol Use: None Substance Use Type: Reports: None Smoking Status (MU): Heavy Every Day Tobacco Smoker Type: Cigarettes Amount Used/How Often: 1 PPD Length of Time of Smoking/Using Tobacco: 32 Years Have You Smoked in the Last Year: Yes Review of Systems Constitutional: Negative Positive: Ear Ache All Other Systems Reviewed And Are Negative: Yes Physical Exam Triage Information Reviewed: Yes Vital Signs On Initial Exam: Initial Vitals Temp Pulse Resp BP Pulse Ox 97.7 F 78 17 145/89 99 01/17/18 08:17 01/17/18 08:17 01/17/18 08:17 01/17/18 08:17 01/17/18 08:17 Vital Signs Reviewed: Yes Appearance: Positive: Well-Appearing, No Pain Distress Skin: Positive: Warm, Skin Color Reflects Adequate Perfusion Head/Face: Positive: Normal Head/Face Inspection Eyes: Positive: EOMI ENT: Positive: Pharynx normal, TM dull - right, TM red - right, Uvula midline, Other - right external ear canal with mild erythema and discomfort on retraction of the lobule. Negative: Nasal congestion, Nasal drainage, Muffled voice, Hoarse voice Neck: Positive: Supple, Nontender Respiratory/Lung Sounds: Positive: Clear to Auscultation, Breath Sounds Present Cardiovascular: Positive: RRR. Negative: Murmur Abdomen Description: Negative: Distended Musculoskeletal: Positive: Strength/ROM Intact Neurological: Positive: Sensory/Motor Intact, Alert, Oriented to Person Place, Time, CN Intact II-III, Normal Gait, Speech Normal Psychiatric: Positive: Normal - Julia Coma Scale Best Eye Response: 4 - Spontaneous Best Motor Response: 6 - Obeys Commands Best Verbal Response: 5 - Oriented Coma Scale Total: 15 Diagnostics - Vital Signs Vital Signs Temp Pulse Resp BP Pulse Ox 01/17/18 08:17 97.7 F 78 17 145/89 99 - Laboratory Lab Statement: Any lab studies that have been ordered have been reviewed, and results considered in the medical decision making process. EENT Course/Dx - Course Course Of Treatment: 42 yr old female with right ear infection, middle and external, rx with cefdinir, and also cortisporin - Diagnoses Provider Diagnoses: Otitis media, Otitis externa, Hypertension Discharge - Sign-Out/Discharge Documenting (check all that apply): Patient Departure - Discharge Plan Condition: Good Disposition: HOME Prescriptions: Cefdinir [Cefdinir 300 MG CAP] 300 mg PO BID #20 cap Neomyc/Polym/HC 1% OTIC SUSP* [Cortisporin Otic Susp 1%*] 4 drop RIGHT EAR TID # 1 btl Patient Education Materials: Otitis Externa (ED), Ear Infection (ED), Hypertension (ED) Referrals: Madeline Pedraza MD [Primary Care Provider] - 2 Days - Billing Disposition and Condition Condition: GOOD Disposition: Home
== END 2018-01-17 08:52 | disposition home or self-care (01) ==
LOC: UCCORT 08:06
DX: H66.91 Otitis media, unspecified, right ear (principal); H60.91 Unspecified otitis externa, right ear; I10 Essential (primary) hypertension; F17.210 Nicotine dependence, cigarettes, uncomplicated
CPT/HCPCS: 99212; G0463

== ENCOUNTER 2018-03-12 11:56 | Emergency (ER) | payer MEDICARE, MEDICAID ==
[2018-03-12 12:18] VITALS: BP 133/80
--- NOTE | 2018-03-12 12:52 | UC ---
Ear Complaint HPI - HPI Summary HPI Summary: Pt presents c/o right ear pain that began 7+ days ago. Pt was seen by PCP and was given ear drops, "ear pain medication" and nasal spray. Pt states that medications are not helping. - History of Current Complaint Chief Complaint: UCEar Stated Complaint: RIGHT EAR COMPLAINT Time Seen by Provider: 03/12/18 12:44 Hx Obtained From: Patient Hx Last Menstrual Period: ESSURE ?: No Onset/Duration: Lasting Days, Still Present Severity Initially: Severe Severity Currently: Severe Pain Intensity: 10 Alleviating Factors: Nothing - Allergies/Home Medications Allergies/Adverse Reactions: Allergies Allergy/AdvReac Type Severity Reaction Status Date / Time No Known Allergies Allergy Verified 01/17/18 08:21 PMH/Surg Hx/FS Hx/Imm Hx Previously Healthy: Yes Other History Of: Negative For: HIV, Hepatitis B, Hepatitis C - Surgical History Surgical History: Yes Surgery Procedure, Year, and Place: [facility]. thyroid removed. 2001. LEFT HEEL SPUR REMOVED - Family History Known Family History: Positive: Cardiac Disease, Hypertension, Diabetes - Social History Lives: With Family Alcohol Use: None Substance Use Type: None Smoking Status (MU): Heavy Every Day Tobacco Smoker Type: Cigarettes Amount Used/How Often: 1 PPD Length of Time of Smoking/Using Tobacco: 32 Years Have You Smoked in the Last Year: Yes - Immunization History Most Recent Influenza Vaccination: no Vaccination Up to Date: No Review of Systems Constitutional: Negative Skin: Negative Eyes: Negative ENT: Ear Ache - right Respiratory: Negative Cardiovascular: Negative Gastrointestinal: Negative Genitourinary: Negative Motor: Negative Neurovascular: Negative Musculoskeletal: Negative Neurological: Negative Psychological: Negative Is Patient Immunocompromised?: No All Other Systems Reviewed And Are Negative: Yes Physical Exam Triage Information Reviewed: Yes Appearance: Well-Appearing Vital Signs: Initial Vital Signs Temp 98.0 F 03/12/18 12:09 Pulse 92 03/12/18 12:09 Resp 19 03/12/18 12:09 BP 133/80 03/12/18 12:09 Pulse Ox 99 03/12/18 12:09 Vital Signs Reviewed: Yes Eye Exam: Normal ENT: Positive: TM bulging - slight bulging of right TM, Other - right ear tragal tenderness Dental Exam: Normal Neck exam: Normal Respiratory Exam: Normal Cardiovascular Exam: Normal Musculoskeletal Exam: Normal Neurological Exam: Normal Psychological Exam: Normal Skin Exam: Normal Ear Complaint Course/Dx - Differential Dx/Diagnosis Differential Diagnosis/HQI/PQRI: Otitis Externa, Otitis Media, Perforated TM, URI Provider Diagnoses: right ear ache Discharge - Sign-Out/Discharge Documenting (check all that apply): Patient Departure All imaging exams completed and their final reports reviewed: No Studies - Discharge Plan Condition: Stable Disposition: HOME Patient Education Materials: Earache (ED) Referrals: Madeline Pedraza MD [Primary Care Provider] - As Soon As Possible Fernando Ruffin MD [Medical Doctor] - If Needed Cheng Linder MD [Medical Doctor] - If Needed Additional Instructions: Please follow up with your PCP and if needed with one of the ENT providers we have listed for you. If your symptoms do not improve or they worsen, please seek care at the closest emergency department as soon as possible. - Billing Disposition and Condition Condition: STABLE Disposition: Home
== END 2018-03-12 13:03 | disposition home or self-care (01) ==
LOC: UCCORT 11:56
DX: H92.01 Otalgia, right ear (principal); F17.210 Nicotine dependence, cigarettes, uncomplicated
CPT/HCPCS: 99212; G0463

== ENCOUNTER 2018-06-11 11:35 | Emergency (ER) | payer MEDICARE, MEDICAID ==
[2018-06-11 11:58] VITALS: BP 149/93
--- NOTE | 2018-06-11 12:25 | UC ---
General HPI - HPI Summary HPI Summary: pt slipped on ice and fell on [place] by her car this am. she landed on L butt/ hip area. c/o pain in L hip area with walking, L elbow and R knee. The elbow and knee are feeling better. denies head, neck and back injury. abrasion L elbow, denies any other injury and no other complaints. - History of Current Complaint Chief Complaint: UCLowerExtremity Stated Complaint: LEFT SIDE PAIN S/P FALL Time Seen by Provider: 06/11/18 12:12 Hx Obtained From: Patient, Family/[facility] Hx Last Menstrual Period: ESSURE Onset/Duration: Sudden Onset Pain Intensity: 9 Associated Signs & Symptoms: Negative: Headache - Allergy/Home Medications Allergies/Adverse Reactions: Allergies Allergy/AdvReac Type Severity Reaction Status Date / Time No Known Allergies Allergy Verified 06/11/18 11:52 Home Medications: Home Medications Aspirin EC TAB* [Ecotrin EC Low Dose 81 MG*] 81 mg PO DAILY 06/11/18 [History Confirmed 06/11/18] Canagliflozin/Metformin HCl [Invokamet 150-1000 mg] 1 tab PO BID 06/11/18 [ History Confirmed 06/11/18] Clopidogrel TAB* [Plavix TAB*] 75 mg PO DAILY 06/11/18 [History Confirmed ] Doxycycline Hyclate 100 mg PO BID 06/11/18 [History Confirmed 06/11/18] Furosemide TAB* [Lasix TAB*] 40 mg PO DAILY 06/11/18 [History Confirmed 06/11/18 ] Insulin GLARGINE(*) [Lantus(*)] 10 units SUBCUT QPM 06/11/18 [History Confirmed 06/11/18] Insulin LISPRO* [HumaLOG*] 14 units SUBCUT DIRECTED 06/11/18 [History Confirmed 06/11/18] Isosorbide Mononitrate ER TAB* [Imdur ER TAB*] 30 mg PO DAILY 06/11/18 [History Confirmed 06/11/18] Levothyroxine TAB* [Synthroid TAB*] 175 mcg PO 0600 06/11/18 [History Confirmed 06/11/18] Lisinopril TAB* [Prinivil TAB*] 40 mg PO DAILY 06/11/18 [History Confirmed 06/11] Metoclopramide TAB* [Reglan TAB*] 5 mg PO TID PRN 06/11/18 [History Confirmed ] Omeprazole 20 mg PO DAILY 06/11/18 [History Confirmed 06/11/18] Phentermine HCl 30 mg PO DAILY 06/11/18 [History Confirmed 06/11/18] Potassium Chloride [Klor-Con M20] 20 meq PO DAILY 06/11/18 [History Confirmed ] Sertraline* [Zoloft*] 50 mg PO DAILY 06/11/18 [History Confirmed 06/11/18] Simvastatin [Zocor] 40 mg PO DAILY 06/11/18 [History Confirmed 06/11/18] Topiramate TAB(*) [Topamax 25 MG tab] 50 mg PO BID 06/11/18 [History Confirmed 06/11/18] PMH/Surg Hx/FS Hx/Imm Hx Endocrine History: Diabetes, Dyslipidemia Cardiovascular History: Hypertension, Other - murmur Psychological History: Depression Other History Of: Negative For: HIV, Hepatitis B, Hepatitis C - Surgical History Surgical History: Yes Surgery Procedure, Year, and Place: [facility] thyroid removed. 2001. LEFT HEEL SPUR REMOVED. ESSURE - Family History Known Family History: Positive: Cardiac Disease, Hypertension, Diabetes - Social History Alcohol Use: None Substance Use Type: None Smoking Status (MU): Heavy Every Day Tobacco Smoker Type: Cigarettes Amount Used/How Often: 1 PPD Length of Time of Smoking/Using Tobacco: 32 Years Have You Smoked in the Last Year: Yes - Immunization History Most Recent Influenza Vaccination: no Vaccination Up to Date: No Review of Systems All Other Systems Reviewed And Are Negative: Yes Constitutional: Positive: Negative Skin: Positive: Negative Eyes: Positive: Negative ENT: Positive: Negative Respiratory: Positive: Negative Cardiovascular: Positive: Negative Gastrointestinal: Positive: Negative Genitourinary: Positive: Negative Motor: Positive: Negative Neurovascular: Positive: Negative Musculoskeletal: Positive: Negative Neurological: Positive: Negative Psychological: Positive: Negative Physical Exam Triage Information Reviewed: Yes Appearance: Well-Appearing Vital Signs: Initial Vital Signs Temp 98.2 F 06/11/18 11:52 Pulse 81 06/11/18 11:52 Resp 18 06/11/18 11:52 BP 149/93 06/11/18 11:52 Pulse Ox 99 06/11/18 11:52 Vital Signs Reviewed: Yes Eyes: Positive: Conjunctiva Clear, Other: - PERRL, EOMI. ENT: Positive: Pharynx normal, TMs normal. Negative: Nasal congestion, Nasal drainage Neck: Positive: Supple, Nontender, No Lymphadenopathy, Other: - c-spine is non tender. Respiratory: Positive: Chest non-tender, Lungs clear, Normal breath sounds Cardiovascular: Positive: RRR, Other: - Murmur not appreciated Abdomen Description: Positive: Nontender, No Organomegaly, Soft Bowel Sounds: Positive: Present Musculoskeletal: Positive: Other: - Head is without deformity or tenderness. thoracic and lumbar spine are without deformity or tenderness. LUE: mild abrasion L elbow other arboleda no deformity or tenderness. RUE: atraumatic. RLE: without deformity ot tenderness and no joint laxity to knee. LLE without deformity or tenderness but pt notes pain L lateral hip/buttock areas with ambulation. pelvis without deformity or instability. s/v/m intact to extremities x4. Neurological: Positive: Other: - a&o x3. cn 2-12 grossly intact. steady gait. Psychological: Positive: Normal Response To Family, Age Appropriate Behavior Skin Exam: Normal Diagnostics - Radiology No standard instances Radiology Interpretation Completed By: Radiologist - L hip/pelvis IMPRESSION: No radiographically apparent fracture or dislocation of the left hip. If the patient's symptoms persist follow-up imaging is recommended. Course/Dx - Course Course Of Treatment: no concern for fx/dislocation L elbow or R knee. No laxity R knee on exam. no fx's L hip/pelvis - Diagnoses Provider Diagnosis: Abrasion of left elbow, Strain of right knee, Contusion of left hip, Contusion , buttock Discharge - Sign-Out/Discharge Documenting (check all that apply): Patient Departure All imaging exams completed and their final reports reviewed: Yes - Discharge Plan Condition: Stable Disposition: HOME Patient Education Materials: Abrasion (ED), Contusion in Adults (ED), Knee Pain (ED) Referrals: Madeline Pedraza MD [Primary Care Provider] - Additional Instructions: FOLLOW UP IF NOT BETTER IN 5 DAYS OR SOONER IF WORSE. - Billing Disposition and Condition Condition: STABLE Disposition: Home
[2018-06-11] MEDS ORDERED: Acetaminophen TAB* 325 MG PO ONE (12:26)
== END 2018-06-11 13:25 | disposition home or self-care (01) ==
LOC: UCCORT 11:35
DX: S50.312A Abrasion of left elbow, initial encounter (principal); S83.91XA Sprain of unspecified site of right knee, initial encounter; S70.02XA Contusion of left hip, initial encounter; S30.0XXA Contusion of lower back and pelvis, initial encounter; W00.0XXA Fall on same level due to ice and snow, initial encounter; Y92.9 Unspecified place or not applicable; E11.9 Type 2 diabetes mellitus without complications; Z79.4 Long term (current) use of insulin; I10 Essential (primary) hypertension; F32.9 Major depressive disorder, single episode, unspecified; E78.5 Hyperlipidemia, unspecified; R01.1 Cardiac murmur, unspecified; F17.210 Nicotine dependence, cigarettes, uncomplicated
CPT/HCPCS: 99211; A9270-GY; G0463

== ENCOUNTER 2018-12-23 09:41 | Emergency (ER) | payer MEDICARE, MEDICAID ==
[2018-12-23 10:06] VITALS: BP 150/90
--- NOTE | 2018-12-23 10:32 | UC ---
Lower Extremity/Ankle HPI - HPI Summary HPI Summary: Per butt maker: "RIGHT KNEE PAIN. ON 12/21 PT WAS KICKING A BALL TO HER DOG AND TWISTED HER KNEE. PAINFUL TO WALK AND BEAR WEIGHT. " -here w/ her BF Boubacar. pain juan-lateral, swelling. + giving out no bruising or redness but does feel swollen - History of Current Complaint Chief Complaint: UCLowerExtremity Stated Complaint: RT KNEE COMPLAINT Time Seen by Provider: 12/23/18 10:30 Hx Last Menstrual Period: ESSURE Pain Intensity: 9 - Allergies/Home Medications Allergies/Adverse Reactions: Allergies Allergy/AdvReac Type Severity Reaction Status Date / Time No Known Allergies Allergy Verified 12/23/18 09:51 Home Medications: Home Medications Acetaminophen [Mapap] 500 mg PO TID PRN 12/23/18 [History Confirmed 12/23/18] Aspirin 81 mg CHEW TAB* 81 mg PO DAILY 12/23/18 [History Confirmed 12/23/18] Dapagliflozin/Metformin HCl [Xigduo Xr 5 mg-1,000 mg Tablet] 1 tab PO BID [History Confirmed 12/23/18] Doxycycline Hyclate 50 mg PO BID 12/23/18 [History Confirmed 12/23/18] Furosemide TAB* [Lasix TAB*] 20 mg PO DAILY 12/23/18 [History Confirmed 12/23/18 ] Levothyroxine TAB* [Synthroid TAB*] 175 mcg PO DAILY 12/23/18 [History Confirmed 12/23/18] Lisinopril [Lisinopril 30 MG-] 30 mg PO DAILY 12/23/18 [History Confirmed ] Omeprazole 20 mg PO DAILY 12/23/18 [History Confirmed 12/23/18] Potassium Chlor TAB* [Potassium Chlor TAB 20 MEQ*] 20 meq PO DAILY 12/23/18 [ History Confirmed 12/23/18] Sertraline* [Zoloft*] 50 mg PO DAILY 12/23/18 [History Confirmed 12/23/18] Simvastatin [Zocor] 40 mg PO DAILY 12/23/18 [History Confirmed 12/23/18] Topiramate [Topiramate ER 50 mg cap] 50 mg PO BID 12/23/18 [History Confirmed ] glipiZIDE [Glipizide ER] 10 mg PO DAILY 12/23/18 [History Confirmed 12/23/18] PMH/Surg Hx/FS Hx/Imm Hx Previously Healthy: Yes Endocrine History: Diabetes Other History Of: Negative For: HIV, Hepatitis B, Hepatitis C - Surgical History Surgical History: Yes Surgery Procedure, Year, and Place: [facility]. thyroid removed. 2001. LEFT HEEL SPUR REMOVED. ESSURE - Family History Known Family History: Positive: Cardiac Disease, Hypertension, Diabetes - Social History Alcohol Use: None Substance Use Type: None Smoking Status (MU): Heavy Every Day Tobacco Smoker Type: Cigarettes Amount Used/How Often: 1 PPD Length of Time of Smoking/Using Tobacco: 32 Years Have You Smoked in the Last Year: Yes Household Exposure Type: Cigarettes - Immunization History Most Recent Influenza Vaccination: no Vaccination Up to Date: No Review of Systems All Other Systems Reviewed And Are Negative: Yes Constitutional: Positive: Negative Skin: Positive: Negative Eyes: Positive: Negative ENT: Positive: Negative Respiratory: Positive: Negative Cardiovascular: Positive: Negative Gastrointestinal: Positive: Negative Genitourinary: Positive: Negative Motor: Positive: Decreased ROM, Other - see above Neurovascular: Positive: Negative Musculoskeletal: Positive: Negative Neurological: Positive: Negative Psychological: Positive: Negative Is Patient Immunocompromised?: No Physical Exam Triage Information Reviewed: Yes Appearance: Pain Distress, Obese Vital Signs: Initial Vital Signs Temp 97.3 F 12/23/18 09:59 Pulse 62 12/23/18 09:59 Resp 20 12/23/18 09:59 BP 150/90 12/23/18 09:59 Pulse Ox 99 12/23/18 09:59 Vital Signs Reviewed: Yes ENT Exam: Normal Respiratory Exam: Normal Respiratory: Positive: Lungs clear Cardiovascular Exam: Normal Musculoskeletal: Positive: Other: - right knee w/ tenderness juan-lateral. ROM limited d/t pain. exam limited d/t habitus and pain. no bruising/erythema. cool to touch. Neurological Exam: Normal Psychological Exam: Normal Skin Exam: Normal Lower Extremity Course/Dx - Course Course Of Treatment: Rt knee xray: OA -BP elevated b/c pain -ice, rest, crutches, ortho f/u -when I reviewd her xray, she reports that she was suposed to have rt knee surgery in 09/29 but postponed b/c a1c high at > 9%. she is now on insulin in hopes to bring it down to be cleared for surgery. she is working toward this. -has crutches, has orthopedist. - Differential Dx/Diagnosis Differential Diagnosis/HQI/PQRI: Contusion, Dislocation, Fracture (Closed), Sprain, Strain Provider Diagnosis: Right knee pain Discharge - Sign-Out/Discharge Documenting (check all that apply): Patient Departure All imaging exams completed and their final reports reviewed: Yes - Discharge Plan Condition: Stable Disposition: HOME Patient Education Materials: Knee Pain (ED) Referrals: Madeline Pedraza MD [Primary Care Provider] - Additional Instructions: The xray of your right knee shows arthritis. There is no fracture. Ice and rest and use your crutches to avoid weight bearing if you have pain with walking. Call your orthopedist this week for follow up. Controlling your diabetes better will be helpful so you can have the recommended surgery. - Billing Disposition and Condition Condition: STABLE Disposition: Home
== END 2018-12-23 11:32 | disposition home or self-care (01) ==
LOC: UCCORT 09:41
DX: M25.561 Pain in right knee (principal); X50.1XXA Overexertion from prolonged static or awkward postures, initial encounter; Y93.89 Activity, other specified; Y92.9 Unspecified place or not applicable; E11.9 Type 2 diabetes mellitus without complications; Z79.84 Long term (current) use of oral hypoglycemic drugs; F17.210 Nicotine dependence, cigarettes, uncomplicated; E89.0 Postprocedural hypothyroidism
CPT/HCPCS: 99212; G0463